=== PATIENT | female | born 1985 | race African-American/Black ===

== ENCOUNTER 2018-03-30 19:46 | Emergency (ER) | payer SELFPAY ==
[~2018-03-30] VITALS: Ht 165.1 cm; Wt 106.6 kg
[2018-03-30 20:00] VITALS: BP_SYST 131
--- NOTE | 2018-03-30 22:24 | NUR ---
Patient to ER bed 04 to gown for evaluation. Side rails up. Report given to DARVIN Card
--- NOTE | 2018-03-30 22:30 | NUR ---
Pt is awake and alert. Pt C/O laceration to left ring finger. Left ring finger has a small laceration to the top of finger, no active bleeding noted. Pain stated 12/20. Family at bedside. Denies any other complaints. Will continue to monitor.
--- NOTE | 2018-03-30 22:58 | NUR ---
ER at bedside examining patient.
[2018-03-30] MEDS ORDERED: LIDOCAINE MPF 1% 50 MG/5 ML AMP INJ ONE (23:45)
[2018-03-30] MEDS ORDERED: LIDOCAINE 1%, 20 ML MDV 20 ML ONE (23:55)
[2018-03-31] MEDS ORDERED: LIDOCAINE 1% 10 MG/ML, 20 ML MDV INJ ONE
[2018-03-31] MEDS ORDERED: DIPH-TET-PERTUS Vaccine 0.5 ML VIAL (ADACEL) I.M. ONE
[2018-03-31] MEDS ORDERED: BACITRACIN 1 GM OINT TP ONE ×2 (00:15→00:21)
[2018-03-31] MEDS ORDERED: BACITRACIN ZINC 15 GM TOPICAL OINTMENT TP ONE (00:15)
[2018-03-31 00:35] VITALS: BP_SYST 128
--- NOTE | 2018-03-31 00:35 | NUR ---
Patient given written and verbal discharge instructions and verbalizes understanding. ER MD Cedeño discussed with patient the results and treatment provided. Patient in stable condition. ID arm band removed. Patient educated on pain management and to follow up with PMD. Pain Scale 1/10. Opportunity for questions provided and answered. Medication side effect fact sheet provided.
== END 2018-03-31 00:35 | disposition home or self-care (01) ==
LOC: SED 19:46
DX: S61.215A Laceration without foreign body of left ring finger without damage to nail, initial encounter (principal); R03.0 Elevated blood-pressure reading, without diagnosis of hypertension; Z88.6 Allergy status to analgesic agent; Z98.84 Bariatric surgery status; W31.89XA Contact with other specified machinery, initial encounter; Y93.89 Activity, other specified; Y92.89 Other specified places as the place of occurrence of the external cause; Y99.8 Other external cause status
CPT/HCPCS: 12001; 90471; 90715; 99283; J2001